=== PATIENT | male | born 1940 | race Caucasian/White ===

== ENCOUNTER → 2018-03-29 09:48 | Outpatient (CLI) | payer MEDICARE, SELFPAY ==
[2018-03-29 11:24] LABS: PSA,Total - Annual Screen 1.05 ng/mL (0.00-4.00)
== END ==
PROVIDERS: Family Provider Nurse Practitioner; PCP Nurse Practitioner; Visit Provider Nurse Practitioner
DX: Z12.5 Encounter for screening for malignant neoplasm of prostate (principal)
CPT/HCPCS: 36415; 84153; G0103

== ENCOUNTER → 2018-04-01 12:49 | Outpatient (CLI) | payer MEDICARE, SELFPAY ==
--- NOTE | 2018-04-01 12:49 | DT_ITS ---
This patient was seen during an EMR downtime March 31, 2018 - April 07, 2018. This patient may have a combination of paper and electronic documentation or all paper documentation. All documentation is viewable within the e-chart portion of [email or web address] for each patient visit.
[2018-04-07 17:04] LABS: ALB/GLOB Ratio 1.1 RATIO (0.9-2.4); AST(SGOT) 25 U/L (15-37); Alanine Aminotransfer ALT/SGPT 33 U/L (16-61); Albumin, Serum 3.6 g/dL (3.2-5.0); Alkaline Phosphatase 115 U/L (45-117); Anion Gap 3 (5-15); BUN 21 mg/dL (7-18); Calcium,Total 8.4 mg/dL (8.5-10.1); Chloride 110 mmol/L (98-107); EST Glomerular Filtration Rate 76 mL/min (>60); Est Glom Filt Rate - Afr Amer 92 mL/min (>60); Globulin 3.3 g/dL (2.2-4.2); Glucose 104 mg/dL (74-106); Potassium 4.2 mmol/L (3.5-5.1); Protein, Total 6.9 g/dL (6.4-8.2); Sodium Level 142 mmol/L (136-145)
[2018-04-07 17:05] LABS: Absolute Lymphocyte Count 1.14 X10^3/ul (0.83-4.51); Absolute Neutrophil Count 3.6 X10^3/uL (2.0-7.7); Basophil% 0.7 % (0-1); Eosinophils% 1.5 % (0-5); Hematocrit 41.2 % (40-54); Hemoglobin 13.6 g/dl (13.0-16.5); Lymphocyte # 1.14 X10^3/ul (4.0); Mean Corpuscular Hgb 32.8 pg (27.0-32.0); Mean Corpuscular Volume 99.3 fL (80-94); Mean Platelet Vol. 8.6 fl (6.2-12.0); Monocyte% 9.9 % (0-10); Neutrophil # 3.58 X10^3/uL (2.7-7.7); Neutrophil % 65.8 % (47-70); POSITIVE COUNT NO; POSITIVE DIFFERENTIAL NO; POSITIVE MORPHOLOGY NO; Platelet Count 192 K/mm3 (150-450); RBC Distribution Width CV 12.7 % (11.6-14.6); RBC Distribution Width SD 45.2 fl (35.1-43.9); Red Blood Count 4.15 M/mm3 (4.6-6.2); White Blood Count 5.4 K/mm3 (4.4-11.0)
== END ==
PROVIDERS: Family Provider Nurse Practitioner; PCP Nurse Practitioner; Visit Provider Nurse Practitioner
DX: R41.3 Other amnesia (principal); I10 Essential (primary) hypertension; D64.9 Anemia, unspecified
CPT/HCPCS: 36415; 80053; 84443; 85025

== ENCOUNTER → 2018-05-05 07:54 | Outpatient (CLI) | payer MEDICARE, SELFPAY ==
[2018-05-05 09:08] LABS: AST(SGOT) 21 U/L (15-37); Alanine Aminotransfer ALT/SGPT 30 U/L (16-61); Albumin, Serum 3.6 g/dL (3.2-5.0); Alkaline Phosphatase 136 U/L (45-117); Bilirubin, Direct 0.18 mg/dL (0.00-0.30); Cholesterol 126 mg/dL (200); Globulin 3.5 g/dL (2.2-4.2); High Density Lipoprotein 70 mg/dL; Protein, Total 7.1 g/dL (6.4-8.2); Triglycerides 53 mg/dL; Very Low Density Lipoprotein 11 mg/dL (5-40)
--- NOTE | 2018-05-08 14:17 | ECHOD_ITS ---
Reason For Study: MURMUR Procedure This was a 2D Doppler, Color Flow transthoracic echocardiogram. The exam was of adequate technical quality. Exam performed in department. Left Ventricle Normal LV size. Left ventricular systolic function is normal. The estimated ejection fraction is 60 %. No evidence for diastolic dysfunction. No regional wall motion abnormalities noted. Right Ventricle Normal RV size. Normal systolic function. Atria Normal left atrium. Normal right atrium. No doppler evidence for ASD. Mitral Valve There is mild mitral annular calcification. Normal mitral valve. Mild (1+) mitral valve insufficiency. Tricuspid Valve Normal tricuspid valve. Trivial tricuspid valve insufficiency. Right ventricular systolic pressure estimated to be 23 mmHg. Aortic Valve Trisinus/trileaflet aortic valve. Moderate diffuse aortic valve calcification. Moderate aortic stenosis. Trivial aortic valve insufficiency. Pulmonic Valve The pulmonic valve is not well visualized. Trivial pulmonic valve insufficiency. Great Vessels Normal sized aortic root. Calcified aortic root. Pericardium/Pleural No pericardial effusion. MMode/2D Measurements & Calculations LVIDd: 4.3 cm IVSd: 0.88 cm LVOT diam: 2.0 cm LVIDs: 2.6 cm LVPWd: 1.0 cm LVOT area: 3.0 cm2 FS: 38.8 % Ao root diam: 3.1 cm LAV(MOD-bp): 33.9 ml LVAd ap4: 27.9 cm2 LA dimension: 3.0 cm LAV(MOD-bp) Indexed: 20.7 ml/m2 EDV(MOD-sp4): 86.6 ml LAV(MOD-sp2): 40.3 ml EDV(sp4-el): 88.9 ml LAV(MOD-sp4): 26.9 ml LVAs ap4: 16.2 cm2 ESV(MOD-sp4): 37.1 ml ESV(sp4-el): 37.5 ml EF(MOD-sp4): 57.2 % EF(sp4-el): 57.8 % SV(MOD-sp4): 49.5 ml SV(sp4-el): 51.4 ml LA A4 area: 13.4 cm2 RA A4 area: 12.8 cm2 Time Measurements MV dec time: 0.20 sec Doppler Measurements & Calculations MV E max cl: 70.2 cm/sec Lat Peak E' Cl: 9.0 cm/sec Med Peak E' Cl: 8.5 cm/sec MV A max cl: 92.3 cm/sec E/E' lat: 7.8 E/E' med: 8.2 MV E/A: 0.76 Ao V2 max: 253.4 cm/sec AI max cl: 420.9 cm/sec LV V1 max: 82.1 cm/sec Ao max P.7 mmHg AI max P.9 mmHg LV V1 max P.7 mmHg Ao V2 mean: 181.0 cm/sec AI dec slope: 208.5 cm/sec2 LV V1 mean P.6 mmHg Ao mean P.8 mmHg AI P1/2t: 591.3 msec LV V1 mean: 60.3 cm/sec Ao V2 VTI: 57.3 cm LV V1 VTI: 20.4 cm TWILA(I,D): 1.1 cm2 TWILA(V,D): 0.97 cm2 SV(LVOT): 61.3 ml PA V2 max: 105.7 cm/sec TR max cl: 224.9 cm/sec TR max P.3 mmHg Interpretation Summary Left ventricular systolic function is normal. The estimated ejection fraction is 60 %. There is mild mitral annular calcification. Mild (1+) mitral valve insufficiency. Trivial tricuspid valve insufficiency. Moderate aortic stenosis. Trivial aortic valve insufficiency. Trivial pulmonic valve insufficiency. Calcified aortic root. Right ventricular systolic pressure estimated to be 23 mmHg. No evidence for diastolic dysfunction. Ordering Physician: Trav Sethi Referring Physician: KALEY NAYAK Performed By: Zeynep Rivera RDCS
== END ==
PROVIDERS: Family Provider Nurse Practitioner; PCP Nurse Practitioner; Visit Provider Internal Medicine Cardiovascular Disease
DX: E78.5 Hyperlipidemia, unspecified (principal); I35.0 Nonrheumatic aortic (valve) stenosis
CPT/HCPCS: 36415; 80061; 80076; 93306

== ENCOUNTER → 2019-03-27 | Outpatient (CLI) | payer MEDICARE, SELFPAY ==
[2018-04-25 11:15] VITALS: BMI 26.0
[2019-03-27 11:30] LABS: Absolute Lymphocyte Count 1.22 X10^3/ul (0.83-4.51); Absolute Neutrophil Count 2.5 X10^3/uL (2.0-7.7); Basophil# 0.02 X10^3/uL; Basophil% 0.5 % (0-1); Eosinophil# 0.07 X10^3/uL; Eosinophils% 1.7 % (0-5); Hematocrit 39.6 % (40-54); Hemoglobin 13.1 g/dl (13.0-16.5); Lymphocyte # 1.22 X10^3/ul (4.0); Lymphocyte % 29.1 % (19-41); Mean Corp Hgb Conc 33.1 g/gl (32-36); Mean Corpuscular Hgb 32.3 pg (27.0-32.0); Mean Corpuscular Volume 97.5 fL (80-94); Mean Platelet Vol. 8.5 fl (6.2-12.0); Monocyte# 0.37 X10^3/uL; Monocyte% 8.8 % (0-10); Neutrophil # 2.49 X10^3/uL (2.7-7.7); Neutrophil % 59.4 % (47-70); Platelet Count 139 K/mm3 (150-450); RBC Distribution Width CV 13.3 % (11.6-14.6); RBC Distribution Width SD 47.8 fl (35.1-43.9); Red Blood Count 4.06 M/mm3 (4.6-6.2); White Blood Count 4.2 K/mm3 (4.4-11.0)
[2019-03-27 11:34] LABS: POSITIVE COUNT NO; POSITIVE DIFFERENTIAL NO; POSITIVE MORPHOLOGY NO
[2019-03-27 12:11] LABS: ALB/GLOB Ratio 1.1 RATIO (0.9-2.4); AST(SGOT) 23 U/L (15-37); Alanine Aminotransfer ALT/SGPT 37 U/L (16-61); Albumin, Serum 3.5 g/dL (3.2-5.0); Alkaline Phosphatase 96 U/L (45-117); Anion Gap 5 (5-15); BUN 22 mg/dL (7-18); BUN/Creat Ratio 22.3 RATIO (10-20); Calcium,Total 8.6 mg/dL (8.5-10.1); Chloride 108 mmol/L (98-107); Cholesterol 157 mg/dL (200); Creatinine, Serum 0.99 mg/dL (0.70-1.30); EST Glomerular Filtration Rate 77 mL/min (>60); Est Glom Filt Rate - Afr Amer 94 mL/min (>60); Globulin 3.2 g/dL (2.2-4.2); Glucose 117 mg/dL (74-106); High Density Lipoprotein 79 mg/dL; PSA,Total - Annual Screen 0.99 ng/mL (0.00-4.00); Potassium 3.8 mmol/L (3.5-5.1); Protein, Total 6.7 g/dL (6.4-8.2); Sodium Level 141 mmol/L (136-145); Thyroid Stim Hormone (TSH) 1.56 uIU/mL (0.358-3.74); Triglycerides 73 mg/dL; Very Low Density Lipoprotein 15 mg/dL (5-40)
== END | disposition home or self-care (01) ==
LOC: LAB 11:03
PROVIDERS: Family Provider Nurse Practitioner; PCP Nurse Practitioner; Referring Provider Nurse Practitioner; Visit Provider Nurse Practitioner
DX: I10 Essential (primary) hypertension (principal); Z12.5 Encounter for screening for malignant neoplasm of prostate; E78.00 Pure hypercholesterolemia, unspecified
CPT/HCPCS: 36415; 80053; 80061; 84153; 84443; 85025; G0103

== ENCOUNTER → 2019-05-04 | Outpatient (CLI) | payer MEDICARE, SELFPAY ==
--- NOTE | 2019-05-04 07:31 | CDU_ITS ---
Reason For Study: STENOSIS Rt. Velocities/BP Lt. Velocities/BP Prox CCA 102/23 cm/sec. Prox CCA 94/26 cm/sec. Mid CCA 82/20 cm/sec. Mid CCA 95/26 cm/sec. Dist CCA 79/24 cm/sec. Dist CCA 83/24 cm/sec. Prox ICA 105/24 cm/sec. Prox ICA 72/21 cm/sec. Mid ICA 116/39 cm/sec. Mid ICA 88/30 cm/sec. Dist ICA 57/21 cm/sec. Dist ICA 68/26 cm/sec. Rt. ICA/CCA = 1.1. Lt. ICA/CCA = .9. Prox ECA 141/6 cm/sec. Prox ECA 116/12 cm/sec. Rt. Vert. 30/12 cm/sec. Lt. Vert. 57/17 cm/sec. Right Extracranial There is heterogeneous, smooth atherosclerotic plaque noted in the right common carotid artery. There is heterogeneous, irregular atherosclerotic plaque noted in the right internal carotid artery. There is heterogeneous, irregular atherosclerotic plaque noted in the right external carotid artery. Antegrade flow is noted in the right vertebral artery. There is heterogeneous, irregular atherosclerotic plaque noted in the right bulb. Left Extracranial There is heterogeneous, irregular atherosclerotic plaque noted in the left common carotid artery. There is heterogeneous, irregular atherosclerotic plaque noted in the left internal carotid artery. There is heterogeneous, irregular atherosclerotic plaque noted in the left external carotid artery. Antegrade flow is noted in the left vertebral artery. Procedure Carotid Duplex [id number]. Exam performed in department. Interpretation Summary Mild (<50%) stenosis right extracranial internal carotid. Mild (<50%) stenosis left extracranial internal carotid. Flow within the vertebral arteries is antegrade bilaterally. Ordering Physician: Fiona Jung Referring Physician: Fiona Jung Performed By: Stacey Vizcarra, RDCS, RVT
== END | disposition home or self-care (01) ==
PROVIDERS: Family Provider Internal Medicine; PCP Internal Medicine; Referring Provider Internal Medicine; Visit Provider Internal Medicine
DX: I65.23 Occlusion and stenosis of bilateral carotid arteries (principal)
CPT/HCPCS: 93880

== ENCOUNTER → 2019-05-29 | Outpatient (CLI) | payer MEDICARE, SELFPAY ==
--- NOTE | 2019-05-29 15:23 | MRI_ITS ---
STUDY: MRI BRAIN WITH AND WITHOUT CONTRAST REASON FOR EXAM: Male, 79 years old. Confusion for one year TECHNIQUE: Standardized multiplanar fat and water weighted pulse sequences were obtained. 12 IV Dotarem was administered for the contrast portion of the examination. COMPARISON: CT head 06/19/2016. FINDINGS: The diffusion-weighted sequence is normal. The multifocal less than 1 cm foci of increased T2 signal within the periventricular white matter and basal ganglia.. There are no enhancing lesions. Normal flow voids within the major intracranial circulation suggesting patency by spin echo criteria. Normal venous enhancement. There is no enhancing intra-axial or extra-axial abnormality. There is 1.6 cm x 1.4 cm cystic lesion likely within the left maxilla incompletely included on the field of view.. There is edema within the turbinates.. Normal sella turcica, pituitary gland, infundibular stalk, optic chiasm and hypothalamus. Normal tectal plate and pineal gland. Normal midbrain, dustin and medulla. Normal cerebellum. Normal basal cisterns. Normal bilateral temporal bones. Normal bilateral internal auditory canals. No demonstrated orbital abnormality, within the constraints of a routine brain study. Normal visualized paranasal sinuses. Normal calvarium and skull base. Normal visualized soft tissue structures. The multilevel degenerative changes of the cervical spine. MRI/Brain W/WO Contrast IMPRESSION: No MRI evidence for acute infarct Multifocal old small vessel deep white matter ischemic changes, minimal old ischemic changes within the basal ganglia, no enhancing lesions Indeterminate 1.6 x 1.4 cm cystic lesion likely within the left maxilla incompletely included on the [id number]. CT facial bones is recommended to further evaluate this is not included on the [id number] prior CT head Mild inflammatory changes within the paranasal sinuses with edema of the turbinates Multilevel spondylosis of the cervical spine Electronically Signed: Paul Hendricks, at 17:13 EDT Tel , Service support ,
== END | disposition home or self-care (01) ==
LOC: MRI 15:16
PROVIDERS: Family Provider Internal Medicine; PCP Internal Medicine; Referring Provider Internal Medicine; Visit Provider Internal Medicine
DX: R41.0 Disorientation, unspecified (principal)
CPT/HCPCS: 70553; A9575

== ENCOUNTER → 2019-06-18 | Outpatient (CLI) | payer MEDICARE, SELFPAY ==
[2019-06-15 14:24] VITALS: BMI 23.6
--- NOTE | 2019-06-18 15:41 | CT_ITS ---
STUDY: CT FACIAL BONES WITHOUT CONTRAST REASON FOR EXAM: Male, 79 years old. Cyst in left maxilla RADIATION DOSAGE (If Supplied By Facility): CTDIvol = ( 33.45 ) mGy, DLP = ( 620.79 ) mGycm TECHNIQUE: The patient was scanned in a multi detector CT scanner. Sagittal and coronal images were reconstructed. Individualized dose optimization techniques were used for this CT. COMPARISON: Recent MRI of 05/29/2019. FINDINGS: A 2.1 x 2.1 x 1.7 cm multilobulated cystic structure with thin wall is visualized along the left anterior maxilla, with attenuation of 20.4 Hounsfield unit. This may represent a possible dentigerous cyst, among other etiologies. There are also coexisting exostosis along the bilateral maxilla and also mandible, more on the left side. Normal soft tissue structures. Normal orbital mcclendon and orbital contents. Normal nasal bones and anterior nasal spine. Normal facial bones. There is no demonstrated fracture. Normal visualized paranasal sinuses. 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 There are also coexisting exostosis along the bilateral maxilla and also mandible, more on the left side. Electronically Signed: Flash Carcamo MD at 15:56 EDT Tel [phone], Service support ,
== END | disposition home or self-care (01) ==
LOC: CT 15:38
PROVIDERS: Family Provider Internal Medicine; PCP Internal Medicine; Referring Provider Internal Medicine; Visit Provider Internal Medicine
DX: R90.89 Other abnormal findings on diagnostic imaging of central nervous system (principal)
CPT/HCPCS: 70486

== ENCOUNTER → 2020-04-20 07:50 | Outpatient (CLI) | payer MEDICARE, SELFPAY ==
[2020-03-30 15:58] VITALS: BMI 23.3
--- NOTE | 2020-04-20 07:52 | ECHOD_ITS ---
Reason For Study: Murmur Procedure This was a 2D Doppler, Color Flow transthoracic echocardiogram. The exam was of adequate technical quality. Exam performed in department. Left Ventricle Normal LV size. Left ventricular systolic function is normal. The estimated ejection fraction is 65 %. No evidence for diastolic dysfunction. No regional wall motion abnormalities noted. Right Ventricle Normal RV size. Normal systolic function. Atria Normal left atrium. Normal right atrium. No doppler evidence for ASD. Mitral Valve There is mild mitral annular calcification. Normal mitral valve. Mild (1+) mitral valve insufficiency. Tricuspid Valve Normal tricuspid valve. Trivial tricuspid valve insufficiency. Aortic Valve Trisinus/trileaflet aortic valve. Moderate diffuse aortic valve calcification. Mild to moderate aortic stenosis. Mild (1+) aortic valve insufficiency. Pulmonic Valve The pulmonic valve is not well visualized. Mild (1+) pulmonic valve insufficiency. Great Vessels Normal sized aortic root. Calcified aortic root. Pericardium/Pleural No pericardial effusion. MMode/2D Measurements & Calculations LVIDd: 3.7 cm IVSd: 1.00 cm LVOT diam: 2.0 cm LVIDs: 2.0 cm LVPWd: 0.88 cm LVOT area: 3.1 cm2 FS: 46.5 % Ao root diam: 2.9 cm LAV(MOD-bp): 40.3 ml LVAd ap4: 23.6 cm2 LAV(MOD-bp) Indexed: 24.7 ml/m2 EDV(MOD-sp4): 60.8 ml LAV(MOD-sp2): 34.6 ml EDV(sp4-el): 61.0 ml LAV(MOD-sp4): 36.1 ml LVAs ap4: 13.3 cm2 ESV(MOD-sp4): 25.6 ml ESV(sp4-el): 24.1 ml EF(MOD-sp4): 57.9 % EF(sp4-el): 60.5 % SV(MOD-sp4): 35.2 ml SV(sp4-el): 36.9 ml LA A4 area: 15.4 cm2 LA dimension(2D): 2.8 cm RA A4 area: 12.3 cm2 Doppler Measurements & Calculations MV E max cl: 72.1 cm/sec Lat Peak E' Cl: 8.5 cm/sec Med Peak E' Cl: 6.3 cm/sec MV A max cl: 84.8 cm/sec E/E' lat: 8.4 E/E' med: 11.4 MV E/A: 0.85 Ao V2 max: 258.8 cm/sec AI max cl: 363.5 cm/sec LV V1 max: 115.4 cm/sec Ao max P.8 mmHg AI max P.9 mmHg LV V1 max P.4 mmHg Ao V2 mean: 170.2 cm/sec LV V1 mean P.8 mmHg Ao mean P.1 mmHg AI dec slope: 184.6 cm/sec2 LV V1 mean: 77.1 cm/sec Ao V2 VTI: 57.1 cm AI P1/2t: 576.6 msec LV V1 VTI: 24.6 cm TWILA(I,D): 1.3 cm2 TWILA(V,D): 1.4 cm2 SV(LVOT): 76.5 ml PA V2 max: 111.5 cm/sec Interpretation Summary Left ventricular systolic function is normal. The estimated ejection fraction is 65 %. There is mild mitral annular calcification. Mild (1+) mitral valve insufficiency. Trivial tricuspid valve insufficiency. Mild to moderate aortic stenosis. Mild (1+) aortic valve insufficiency. Mild (1+) pulmonic valve insufficiency. Calcified aortic root. No evidence for diastolic dysfunction. Ordering Physician: Trav Sethi Referring Physician: Fiona Jung D.O. Performed By: Irma Santacruz RDCS
[2020-04-20 09:06] LABS: Bacteria 0 SEEN /hpf (None Seen); Red Blood Cells-Urine 0 SEEN /hpf (0-5); Squamous Epithelial Cells - UA 0 SEEN /hpf (0-5)
[2020-04-20 09:44] LABS: Color, Urine Yellow (Yellow); Glucose, Dipstick Normal (Normal); Ketone-Dipstick 5 mg/dl (Negative); Leukocyte Esterase-Dipstick Negative /ul (Negative); Nitrite-Dipstick Negative (Negative); Occult Blood-Urine Negative /ul (Negative); Protein-Dipstick Negative (Negative); Specific Gravity, Urine 1.025 (1.002-1.030); Urine Bilirubin Dipstick Negative (Negative); Urine Clarity Clear (Clear); Urine Urobilinogen Normal (Normal)
[2020-04-20 09:49] LABS: Absolute Lymphocyte Count 1.15 X10^3/uL (0.83-4.51); Absolute Neutrophil Count 2.4 X10^3/uL (2.0-7.7); Basophil# 0.03 X10^3/uL; Basophil% 0.7 % (0-1); Eosinophils% 2.4 % (0-5); Hematocrit 41.3 % (40-54); Hemoglobin 13.4 g/dL (13.0-16.5); Lymphocyte # 1.15 X10^3/ul (4.0); Lymphocyte % 27.3 % (19-41); Mean Corp Hgb Conc 32.4 g/dL (32-36); Mean Corpuscular Hgb 32.9 pg (27.0-32.0); Mean Corpuscular Volume 101.5 fL (80-94); Mean Platelet Vol. 8.9 fl (6.2-12.0); Monocyte# 0.52 X10^3/uL; Monocyte% 12.3 % (0-10); NRBC Flagged by Analyzer 0 % (0-5); Neutrophil # 2.39 X10^3/uL (2.7-7.7); Neutrophil % 56.6 % (47-70); Platelet Count 154 K/mm3 (150-450); RBC Distribution Width SD 48.4 fl (35.1-43.9); Red Blood Count 4.07 M/mm3 (4.6-6.2); White Blood Count 4.2 K/mm3 (4.4-11.0)
[2020-04-20 09:56] LABS: Mucous, Urine 2+ /hpf (<or=2+)
[2020-04-20 09:57] LABS: White Blood Cells 0 SEEN /hpf (0-5)
[2020-04-20 10:05] LABS: Microalbumin,Random Urine 36.5 mg/L (NO RANGE EST.); Microalbumin:Creatinine Ratio 21.3 mg/g CRE (<30 mg/g CRE)
[2020-04-20 10:37] LABS: ALB/GLOB Ratio 1.1 RATIO (0.9-2.4); AST(SGOT) 22 U/L (15-37); Alanine Aminotransfer ALT/SGPT 39 U/L (16-61); Albumin, Serum 3.7 g/dL (3.2-5.0); Alkaline Phosphatase 92 U/L (45-117); Anion Gap 5 (5-15); BUN 25 mg/dL (7-18); Calcium,Total 8.6 mg/dL (8.5-10.1); Chloride 110 mmol/L (98-107); Cholesterol 139 mg/dL (200); EST Glomerular Filtration Rate 76 mL/min (>60); Est Glom Filt Rate - Afr Amer 92 mL/min (>60); Globulin 3.3 g/dL (2.2-4.2); Glucose 110 mg/dL (74-106); High Density Lipoprotein 75 mg/dL; PSA,Total - Annual Screen 1.74 ng/mL (0.00-4.00); Sodium Level 142 mmol/L (136-145); Triglycerides 66 mg/dL; Very Low Density Lipoprotein 13 mg/dL (5-40)
== END ==
PROVIDERS: PCP Internal Medicine; Referring Provider Internal Medicine Cardiovascular Disease; Visit Provider Internal Medicine Cardiovascular Disease
DX: E78.5 Hyperlipidemia, unspecified (principal); D69.6 Thrombocytopenia, unspecified; I10 Essential (primary) hypertension; E11.9 Type 2 diabetes mellitus without complications; Z12.5 Encounter for screening for malignant neoplasm of prostate; Z95.5 Presence of coronary angioplasty implant and graft; I25.10 Atherosclerotic heart disease of native coronary artery without angina pectoris; I49.3 Ventricular premature depolarization; I35.0 Nonrheumatic aortic (valve) stenosis
CPT/HCPCS: 36415; 80053; 80061; 81001; 82043; 82570; 83036; 84153; 85025; 93306; G0103

== ENCOUNTER → 2020-05-12 07:53 | Outpatient (CLI) | payer MEDICARE, SELFPAY ==
[2020-03-30 15:58] VITALS: BMI 23.3
--- NOTE | 2020-05-12 08:00 | CDU_ITS ---
Reason For Study: carotid stenosis Rt. Velocities/BP Lt. Velocities/BP Prox CCA 120.4/21.3 cm/sec. Prox CCA 116.1/19.4 cm/sec. Mid CCA 117.8/25.2 cm/sec. Mid CCA 107.6/19.2 cm/sec. Dist CCA 102.1/20.0 cm/sec. Dist CCA 90.5/15.5 cm/sec. Prox ICA 168.2/23.4 cm/sec. Prox ICA 42.5/8.4 cm/sec. Mid ICA 108.9/30.4 cm/sec. Mid ICA 77.6/22.7 cm/sec. Dist ICA 84.3/22.9 cm/sec. Dist ICA 85.3/27.1 cm/sec. Rt. ICA/CCA = 1.4. Lt. ICA/CCA = .8. Prox ECA 184.8/8.6 cm/sec. Prox ECA 144.1/8.0 cm/sec. Rt. Vert. 38.1/7.5 cm/sec. Lt. Vert. 75.4/20.5 cm/sec. Right Extracranial There is homogeneous, smooth atherosclerotic plaque noted in the right common carotid artery. There is heterogeneous, irregular atherosclerotic plaque noted in the right internal carotid artery. There is heterogeneous, irregular atherosclerotic plaque noted in the right external carotid artery. Antegrade flow is noted in the right vertebral artery. There is heterogeneous, irregular atherosclerotic plaque noted in the right bulb. Left Extracranial There is heterogeneous, irregular atherosclerotic plaque noted in the left common carotid artery. There is heterogeneous, irregular atherosclerotic plaque noted in the left internal carotid artery. There is heterogeneous, irregular atherosclerotic plaque noted in the left external carotid artery. Antegrade flow is noted in the left vertebral artery. Interpretation Summary Moderate (50-69%) stenosis right extracranial internal carotid. Mild (<50%) stenosis left extracranial internal carotid. Flow within the vertebral arteries is antegrade bilaterally. Heterogeneous, irregular atherosclerotic plaque is noted in the right carotid bulb, which does not appear to be hemodynamically significant. Ordering Physician: Fiona Jung Performed By: Octavio Aj RVT
== END ==
PROVIDERS: PCP Internal Medicine; Referring Provider Internal Medicine; Visit Provider Internal Medicine
DX: I65.23 Occlusion and stenosis of bilateral carotid arteries (principal)
CPT/HCPCS: 93880

== ENCOUNTER 2020-07-11 09:51 | Emergency (ER) | payer MEDICARE, SELFPAY ==
[2020-03-30 15:58] VITALS: BMI 23.3
[2020-07-11] VITALS (8 sets, daily range): BP systolic 107–173; BP diastolic 65–96; PULSE 56–69; RESP 13–18; TEMP 36.2–37; O2SAT 17–100; BMI 21.4
--- NOTE | 2020-07-11 10:01 | EKG12_ITS ---
Test Reason : STROKE Blood Pressure : / mmHG Vent. Rate : 067 BPM Atrial Rate : 069 BPM P-R Int : 000 ms QRS Dur : 066 ms QT Int : 392 ms P-R-T Axes : 000 058 063 degrees QTc Int : 414 ms Somatic/Motion Artifact Sinus Vs Ectopic Atrial Rhythm Abnormal ECG Confirmed by CHERIE OAKES, ANIKA ([id number]), senior technical editor JOSÉ LUIS JOSE ([id number]) on 07/13/2020 11:02:09 AM Referred By: BB Confirmed By:ANIKA CRESPO MD
--- NOTE | 2020-07-11 10:01 | CT_ITS ---
STUDY: CT BRAIN WITHOUT CONTRAST REASON FOR EXAM: Male, 80 years old. STROKE, HEADACHE RADIATION DOSAGE (If Supplied By Facility): CTDIvol = ( 44.99 ) mGy, DLP = ( 779.24 ) mGycm TECHNIQUE: Transaxial CT imaging of the brain was performed without administration of intravenous contrast material. Individualized dose optimization techniques were used for this CT. COMPARISON: Comparison is made with prior study dated 06/19/2016. FINDINGS: Normal soft tissue structures. Normal calvarium. There is a 3.9 cm x 2.2 cm x 4.7 cm intracerebral hematoma involving the posterior aspect of the right temporal lobe with extension of the right posteroparietal occipital lobes. There is evidence of surrounding edema a maNormal basal ganglia and thalami.e Normal brainstem.alNormal cerebellum. luiza i. ormaNormal visualized paranasal sinuses. Normal visualized paranasal sinuses. __Intracerebral hematoma involving the posterior aspect of the right temporal lobe with extension of the right posterior parietal occipital lobes. Surrounding posterior parietal occipital lobes. Surrounding edema. N.B. : The above information has been verbally conveyed by Isacc Pena to Trav Mishra MD, on 07/11/2020 10:27:01 (ET). Electronically Signed: Isacc Pena, at 10:28 EDT , Service support , CT/Brain/Head without Contrast
--- NOTE | 2020-07-11 10:03 | ED.VIS.STROK ---
History of Present Illness Chief Complaint: Headache Informant: Patient Onset: Today Narrative: Patient arrives via EMS, stroke team was called as soon as I saw the patient, I was not called prior to patient's arrival. Patient had onset of symptoms 1 hour prior to arrival, he describes dizziness, he has luisa-inattention and visual cut as well as some ataxia and he staggers on his level of consciousness, sometimes he is quite inattentive and then he becomes more attentive. I got the history and review of systems during 1 of the levels where he was attentive, he tells me a relatively reasonable story, he feels dizzy and cannot concentrate to his left. He has a slight headache. He has no nausea or vomiting he denies any chest pain or shortness of breath. Past Medical History - Allergies and Home Meds Allergies/Adverse Reactions: Allergies atorvastatin Adverse Reaction (Intermediate, Verified 03/30/20 16:00) Unknown Patient can take lipitor but not generic atorvastatin Primary Care Physician: Fiona Jung DO [Primary Care Provider] - Past Medical History: - - Hypertension, hypercholesterolemia Review of Systems General: Denies: Fever Cardiovascular: Denies: Chest pain, Palpitations Respiratory: Denies: Dyspnea, Cough Gastrointestinal: Denies: Abdominal pain, Nausea Musculoskeletal: Denies: Myalgias, Arthralgias Neurological: Denies: Headache, Weakness Psych: Denies: Depression, Anxiety Endocrine: Denies: Polyuria Hematologic: Denies: Easy bruising, Easy bleeding STROKE - NIHSS Initial 1a Level of Consciousness: 1 1b LOC Questions (Score 2 if aphasic/stupor): 0 1c LOC Commands (Only score 1st attempt): 0 2 Best Gaze (If aphasic, use reflexive mvmts.): 2 3 Visual: 2 4 Facial Palsy: 0 5 Motor Arm Right (UN = amputation/fusion): 0 5 Motor Arm Left: 0 6 Motor Leg Right: 0 6 Motor Leg Left: 0 7 Limb ataxia (Only + if out of proportion): 1 8 Sensory (Aphasia/stupor=0 or 1, coma=2): 0 9 Best Language: 0 10 Dysarthria (mute, coma=2, intubated=UN): 0 11 Extinction and Inattention (only scored if +): 1 Total Score: 7 General: Well developed Head: Normocephalic ENT: Moist mucous membranes Neck: Supple Cardiovascular: Regular rate, Regular rhythm Respiratory: No distress, CTA bilaterally Abdomen: Soft, Nontender Extremities: Nontender, No edema Skin: Normal color Neurological: Alert, Oriented x3 Psychological: Normal affect Diagnostic/Tx/Re-eval - Rhythm Strip Rhythm Strip: Sinus Rhythm Rate: 67 Ectopy: None - EKG Initial EKG Interpretation: - - Sinus rhythm with a rate of 67, read as junctional rhythm but I believe I see P waves on the EKG. Normal QTc interval. No ischemic changes. - Medical Decision Making Stroke Team Activated: Yes Reviewed Inclusion/Exclusion criteria: No Was Patient considered for Endovascular Intervention?: No IV Alteplase (t-PA) Administered: No - ICH No contraindications for IV Alteplase (t-PA) administration.: Yes Alteplase (t-PA) risks, benefits, alternative discussed: No Not given: Patient refusal: No - ICH Patient is found to have a right posterior temporal bleed, this is likely a hypertensive bleed. Patient is only on aspirin. DDAVP ordered. Keppra was ordered. I talked to the transfer line at [facility] patient was accepted. Blood pressure is now significantly improved. Critical care time (excluding procedures): 30-74 minutes ED Disposition - Plan for ED Patient: Disposition: [facility] Diagnosis: Intraparenchymal hemorrhage of brain Referrals: Fiona Jung DO [Primary Care Provider] -
--- NOTE | 2020-07-11 10:15 | ED.RN ---
osu stroke line not called due to patient in CT scan seeing patient is a brain bleed.
[2020-07-11] MEDS: Labetalol (Prefilled) 20 MG/4 ML IV (10:19)
--- NOTE | 2020-07-11 10:20 | CM.ED ---
SOCIAL WORK Responded to Stroke Alert. No family present at this time. This worker to remain available for needs. Rylie Trotter, BONUS CLERK, WAREHOUSE ASSISTANT
[2020-07-11 10:23] LABS: Absolute Lymphocyte Count 1.06 X10^3/uL (0.83-4.51); Absolute Neutrophil Count 2.7 X10^3/uL (2.0-7.7); Basophil# 0.02 X10^3/uL; Basophil% 0.5 % (0-1); Eosinophil# 0.07 X10^3/uL; Eosinophils% 1.6 % (0-5); Hematocrit 41.8 % (40-54); Hemoglobin 13.7 g/dL (13.0-16.5); Lymphocyte # 1.06 X10^3/ul (4.0); Lymphocyte % 24.4 % (19-41); Mean Corp Hgb Conc 32.8 g/dL (32-36); Mean Corpuscular Hgb 32.9 pg (27.0-32.0); Mean Corpuscular Volume 100.5 fL (80-94); Mean Platelet Vol. 8.6 fl (6.2-12.0); Monocyte% 11.5 % (0-10); NRBC Flagged by Analyzer 0 % (0-5); Neutrophil # 2.67 X10^3/uL (2.7-7.7); Neutrophil % 61.5 % (47-70); Platelet Count 144 K/mm3 (150-450); Red Blood Count 4.16 M/mm3 (4.6-6.2); White Blood Count 4.3 K/mm3 (4.4-11.0)
[2020-07-11] MEDS: levETIRAcetam IV 1,000 MG/100 ML BAG 400 MG IV (10:28)
[2020-07-11] MEDS: Labetalol 100 MG/20 ML Vial 20 MG IV (10:35)
[2020-07-11 10:42] LABS: International Normalized Ratio 1.1; Prothrombin Time (Protime)PT. 13.2 SECONDS (11.7-14.9)
[2020-07-11 10:43] LABS: Partial Thromboplast Time 30.7 Seconds (24.1-36.2)
[2020-07-11 10:44] LABS: Anion Gap 4 (5-15); BUN 27 mg/dL (7-18); BUN/Creat Ratio 25.5 RATIO (10-20); Calcium,Total 9.1 mg/dL (8.5-10.1); Chloride 111 mmol/L (98-107); Creatinine, Serum 1.06 mg/dL (0.70-1.30); EST Glomerular Filtration Rate 71 mL/min (>60); Est Glom Filt Rate - Afr Amer 86 mL/min (>60); Estimated Creatinine Clearance 48.56 ml/min; Glucose 114 mg/dL (74-106); Potassium 3.8 mmol/L (3.5-5.1); Sodium Level 143 mmol/L (136-145)
--- NOTE | 2020-07-11 10:52 | ED.RN ---
called and given update at this time of transfer status
--- NOTE | 2020-07-11 10:53 | CM.ED ---
SOCIAL WORK Patient to be transferred to [facility]. Nurse, Mario on phone with patient's at this time. Rylie Trotter, SHOE SHINER, DENTAL CHAIR ASSEMBLER
--- NOTE | 2020-07-11 10:55 | ED.RN ---
[facility] transport team at the bedside
[2020-07-11] MEDS: Desmopressin Acetate 4 MCG/ML Ampul IV (11:03)
--- NOTE | 2020-07-11 11:19 | ED.RN ---
called can updated on patient condition
[2020-07-13 07:15] LABS: Bedside Glucose 95 mg/dL (70-110)
== END 2020-07-11 11:05 | disposition short-term general hospital (02) ==
PROVIDERS: Emergency Provider Emergency Medicine; PCP Internal Medicine
DX: I61.8 Other nontraumatic intracerebral hemorrhage (principal); H53.8 Other visual disturbances; R29.707 NIHSS score 7; I10 Essential (primary) hypertension; E78.00 Pure hypercholesterolemia, unspecified; Z79.82 Long term (current) use of aspirin; Z79.899 Other long term (current) drug therapy
CPT/HCPCS: 51702; 70450; 80048; 82962; 84484; 85025; 85610; 85730; 93005; 96365; 96374; 99285; J7030; J7050; A4216; J2597

== ENCOUNTER → 2020-09-20 05:00 | Outpatient (REF) | payer MEDICARE, SELFPAY ==
[2020-07-11 10:12] VITALS: BMI 21.4
[2020-09-20 06:14] LABS: Hematocrit 37.1 % (40-54); Hemoglobin 12.3 g/dL (13.0-16.5); Mean Corp Hgb Conc 33.2 g/dL (32-36); Mean Corpuscular Hgb 32.9 pg (27.0-32.0); Mean Corpuscular Volume 99.2 fL (80-94); Mean Platelet Vol. 8.9 fl (6.2-12.0); Platelet Count 167 K/mm3 (150-450); RBC Distribution Width CV 13.3 % (11.6-14.6); RBC Distribution Width SD 47.8 fl (35.1-43.9); Red Blood Count 3.74 M/mm3 (4.6-6.2); White Blood Count 5.2 K/mm3 (4.4-11.0)
[2020-09-20 06:40] LABS: ALB/GLOB Ratio 1.2 RATIO (0.9-2.4); AST(SGOT) 17 U/L (15-37); Alanine Aminotransfer ALT/SGPT 22 U/L (16-61); Albumin, Serum 3.4 g/dL (3.2-5.0); Alkaline Phosphatase 97 U/L (45-117); Anion Gap 5 (5-15); BUN 19 mg/dL (7-18); BUN/Creat Ratio 21.1 RATIO (10-20); Calcium,Total 8.7 mg/dL (8.5-10.1); Chloride 108 mmol/L (98-107); Cholesterol 138 mg/dL (200); EST Glomerular Filtration Rate 86 mL/min (>60); Est Glom Filt Rate - Afr Amer 104 mL/min (>60); Globulin 2.9 g/dL (2.2-4.2); Glucose 100 mg/dL (74-106); High Density Lipoprotein 74 mg/dL; Potassium 3.7 mmol/L (3.5-5.1); Protein, Total 6.3 g/dL (6.4-8.2); Sodium Level 142 mmol/L (136-145); Triglycerides 78 mg/dL; Very Low Density Lipoprotein 16 mg/dL (5-40)
[2020-09-20 07:45] LABS: Hemoglobin A1c 6.2 % (3.8-5.6)
== END ==
PROVIDERS: PCP Internal Medicine; Referring Provider Internal Medicine; Visit Provider Internal Medicine
DX: I10 Essential (primary) hypertension (principal); Z79.899 Other long term (current) drug therapy
CPT/HCPCS: 36415; 80053; 80061; 83036; 85027

== ENCOUNTER → 2020-10-12 00:36 | Outpatient (REF) | payer MEDICARE, SELFPAY ==
[2020-07-11 10:12] VITALS: BMI 21.4
[2020-10-12 08:50] LABS: Color, Urine Yellow (Yellow); Glucose, Dipstick Normal (Normal); Ketone-Dipstick Negative (Negative); Leukocyte Esterase-Dipstick 25 /ul (Negative); Nitrite-Dipstick Negative (Negative); Occult Blood-Urine Negative /ul (Negative); Protein-Dipstick Negative (Negative); Specific Gravity, Urine 1.025 (1.002-1.030); Urine Bilirubin Dipstick Negative (Negative); Urine Clarity Sl. Cloudy (Clear); Urine Urobilinogen Normal (Normal)
== END ==
PROVIDERS: PCP Internal Medicine; Visit Provider Internal Medicine
DX: R44.3 Hallucinations, unspecified (principal); Z79.899 Other long term (current) drug therapy
CPT/HCPCS: 81002; 87086; 87088

== ENCOUNTER → 2020-10-14 16:45 | Outpatient (REF) | payer MEDICARE, SELFPAY ==
[2020-07-11 10:12] VITALS: BMI 21.4
[2020-10-14 17:32] LABS: Hemoglobin 13.1 g/dL (13.0-16.5); Mean Corp Hgb Conc 32.8 g/dL (32-36); Mean Corpuscular Hgb 32.7 pg (27.0-32.0); Mean Corpuscular Volume 99.8 fL (80-94); Mean Platelet Vol. 8.8 fl (6.2-12.0); Platelet Count 190 K/mm3 (150-450); RBC Distribution Width CV 13.4 % (11.6-14.6); RBC Distribution Width SD 49.1 fl (35.1-43.9); Red Blood Count 4.01 M/mm3 (4.6-6.2); White Blood Count 4.9 K/mm3 (4.4-11.0)
[2020-10-14 18:12] LABS: ALB/GLOB Ratio 1.1 RATIO (0.9-2.4); AST(SGOT) 14 U/L (15-37); Alanine Aminotransfer ALT/SGPT 25 U/L (16-61); Albumin, Serum 3.5 g/dL (3.2-5.0); Alkaline Phosphatase 135 U/L (45-117); Anion Gap 5 (5-15); BUN 25 mg/dL (7-18); BUN/Creat Ratio 26.8 RATIO (10-20); Calcium,Total 8.9 mg/dL (8.5-10.1); Chloride 109 mmol/L (98-107); Creatinine, Serum 0.93 mg/dL (0.70-1.30); EST Glomerular Filtration Rate 82 mL/min (>60); Est Glom Filt Rate - Afr Amer 99 mL/min (>60); Globulin 3.3 g/dL (2.2-4.2); Glucose 120 mg/dL (74-106); Potassium 3.7 mmol/L (3.5-5.1); Protein, Total 6.8 g/dL (6.4-8.2); Sodium Level 145 mmol/L (136-145)
== END ==
PROVIDERS: PCP Internal Medicine; Visit Provider Internal Medicine
DX: R44.3 Hallucinations, unspecified (principal); R41.0 Disorientation, unspecified
CPT/HCPCS: 80053; 84443; 85027

== ENCOUNTER → 2020-10-17 16:40 | Outpatient (REF) | payer MEDICARE, SELFPAY ==
[2020-07-11 10:12] VITALS: BMI 21.4
[2020-10-17 17:19] LABS: Vitamin B12 1035 pg/mL (211-911)
== END ==
PROVIDERS: PCP Internal Medicine; Referring Provider Internal Medicine; Visit Provider Internal Medicine
DX: Z79.899 Other long term (current) drug therapy (principal); R44.3 Hallucinations, unspecified
CPT/HCPCS: 82607

== ENCOUNTER 2022-04-11 10:50 | Outpatient (CLI) | payer MEDICARE, SELFPAY ==
[2022-04-11 11:21] LABS: Mucous, Urine 0 SEEN /hpf (<or=2+)
[2022-04-11 12:22] LABS: Absolute Lymphocyte Count 2.17 X10^3/uL (0.83-4.51); Absolute Neutrophil Count 4.8 X10^3/uL (2.0-7.7); Basophil# 0.03 X10^3/uL; Basophil% 0.4 % (0-1); Eosinophil# 0.04 X10^3/uL; Eosinophils% 0.5 % (0-5); Hematocrit 39.8 % (40-54); Hemoglobin 12.9 g/dL (13.0-16.5); Lymphocyte # 2.17 X10^3/ul (0.83-4.51); Lymphocyte % 27.5 % (19-41); Mean Corp Hgb Conc 32.4 g/dL (32-36); Mean Corpuscular Hgb 32.3 pg (27.0-32.0); Mean Corpuscular Volume 99.5 fL (80-94); Mean Platelet Vol. 8.8 fl (6.2-12.0); Monocyte# 0.73 X10^3/uL; Monocyte% 9.2 % (0-10); NRBC Flagged by Analyzer 0 % (0-5); Neutrophil # 4.84 X10^3/uL (2.7-7.7); Neutrophil % 61.3 % (47-70); Platelet Count 192 K/mm3 (150-450); RBC Distribution Width CV 13.6 % (11.6-14.6); RBC Distribution Width SD 49.4 fl (35.1-43.9); White Blood Count 7.9 K/mm3 (4.4-11.0)
[2022-04-11 12:33] LABS: Color, Urine Yellow (Yellow); Glucose, Dipstick Normal (Normal); Ketone-Dipstick Negative (Negative); Leukocyte Esterase-Dipstick 25 /ul (Negative); Nitrite-Dipstick Negative (Negative); Occult Blood-Urine Negative /ul (Negative); Protein-Dipstick Negative (Negative); Specific Gravity, Urine 1.025 (1.002-1.030); Urine Bilirubin Dipstick Negative (Negative); Urine Clarity Clear (Clear); Urine Urobilinogen Normal (Normal)
[2022-04-11 13:00] LABS: Bacteria RARE /hpf (None Seen); Calcium Oxalate Crystals Ur RARE /hpf (<or=2+); Red Blood Cells-Urine 0-5 SEEN /hpf (0-5); Squamous Epithelial Cells - UA 0-5 SEEN /hpf (0-5); Vitamin D,25 Hydroxy 65.6 ng/mL; White Blood Cells 0-5 SEEN /hpf (0-5)
[2022-04-11 13:01] LABS: Hemoglobin A1c 6.5 % (3.8-5.6)
[2022-04-11 13:11] LABS: AST(SGOT) 16 U/L (15-37); Alanine Aminotransfer ALT/SGPT 41 U/L (16-61); Albumin, Serum 3.2 g/dL (3.2-5.0); Alkaline Phosphatase 122 U/L (45-117); Anion Gap 7 (5-15); BUN 25 mg/dL (7-18); BUN/Creat Ratio 25.5 RATIO (10-20); Calcium,Total 8.6 mg/dL (8.5-10.1); Chloride 105 mmol/L (98-107); Cholesterol 143 mg/dL (200); Creatinine, Serum 0.98 mg/dL (0.70-1.30); EST Glomerular Filtration Rate 78 mL/min (>60); Est Glom Filt Rate - Afr Amer 94 mL/min (>60); Globulin 3.1 g/dL (2.2-4.2); Glucose 126 mg/dL (74-106); High Density Lipoprotein 86 mg/dL; Potassium 3.7 mmol/L (3.5-5.1); Protein, Total 6.3 g/dL (6.4-8.2); Sodium Level 141 mmol/L (136-145); Triglycerides 62 mg/dL; Very Low Density Lipoprotein 12 mg/dL (5-40)
[2022-04-11 13:17] LABS: Microalbumin,Random Urine 14.6 mg/L (NO RANGE EST.); Microalbumin:Creatinine Ratio 7.6 mg/g CRE (<30 mg/g CRE)
== END 2022-04-11 23:59 | disposition home or self-care (01) ==
LOC: LAB 10:53
PROVIDERS: PCP Internal Medicine; Visit Provider Internal Medicine
DX: E11.9 Type 2 diabetes mellitus without complications (principal); E78.5 Hyperlipidemia, unspecified; M81.0 Age-related osteoporosis without current pathological fracture; I10 Essential (primary) hypertension; R82.90 Unspecified abnormal findings in urine
CPT/HCPCS: 36415; 80053; 80061; 81001; 82043; 82306; 82570; 83036; 84443; 85025; 87086; 87088

== ENCOUNTER → 2022-05-09 | Outpatient (CLI) | payer MEDICARE, SELFPAY ==
--- NOTE | 2022-05-09 10:43 | BD_ITS ---
STUDY: DUAL ENERGY X-RAY ABSORPTIOMETRY / DXA REASON FOR EXAM: Male, 82 years old. M810. Loss of height. TECHNIQUE: Bone Mineral Density (BMD) measurements of lumbar spine and bilateral hips were obtained. COMPARISON: Comparison is made with prior study dated 05/03/2015 and 04/28/2013. FINDINGS: Lumbar Spine (L1-L4): g/cm2 (1.558) / T-score (4.2) / Z-score (5.5) Findings are suggestive of normal bone density with a low fracture risk. Left Femur Total: g/cm2 (0.619) / T-score (-2.7) / Z-score (-1.5) Left Femoral Neck: g/cm2 (0.529) / T-score (-2.9) / Z-score (-1.3) Right Femur Total: g/cm2 (0.651) / T-score (-2.5) / Z-score (-1.3) Right Femoral Neck: g/cm2 (0.591) / T-score (-2.5) / Z-score (0.8) The T-Scores on the most recent prior examination were: Lumbar Spine (L1-L4): There has been worsening of bone density since the previous examination. Left Femur Total: which represents a worsening of 0.3%. Right Femur Total: which represents a worsening of 1%. BD/Dexa Bone Density Study IMPRESSION: The patient is considered osteoporotic as outlined below according to World [place] Organization (WHO) criteria with a high fracture risk. There has been worsening of bone density since the previous examination. Reference Information: The T-score is the number of standard deviations above or below the standard which is normal for young adults at their peak bone mineral density. The World Health Organization (WHO) interprets the T-scores as follows: Above -1 Normal bone density Between -1 and -2.5 Osteopenia Equal to / or below -2.5 Osteoporosis As a practical clinical guideline, osteopenia may be graded as follows: Mild -1 through -1.5 Moderate -1.6 through -2.0 Severe -2.1 through -2.4 The Z-score is the number of standard deviations above or below age-matched controls. A Z-score of less than -1.5 would be considered abnormal. References: 1. NIH Osteoporosis and Related Bone Diseases www osteo.org 2. International Society for Clinical Densitometry www iscd.org 3. National Osteoporosis Foundation www nof.org Electronically Signed: Isacc Pena MD at 12:01 EDT ,
== END | disposition home or self-care (01) ==
LOC: OPBD 10:23
PROVIDERS: PCP Internal Medicine; Referring Provider Internal Medicine; Visit Provider Internal Medicine
DX: I49.9 Cardiac arrhythmia, unspecified (principal); M81.0 Age-related osteoporosis without current pathological fracture
CPT/HCPCS: 77080; 93225; 93226

== ENCOUNTER → 2022-08-30 | Outpatient (CLI) | payer MEDICARE, SELFPAY ==
--- NOTE | 2022-08-30 12:48 | ECHOD_ITS ---
Reason For Study: Murmur Procedure This was a 2D Doppler, Color Flow transthoracic echocardiogram. The study was technically difficult. Left Ventricle Based upon the 2D echocardiographic images obtained there appears to be grossly normal left ventricular size, wall motion, and systolic function. The estimated ejection fraction is 65 %. No evidence for diastolic dysfunction. Right Ventricle Normal RV size. Normal systolic function. Atria Normal left atrium. Normal right atrium. No doppler evidence for ASD. Mitral Valve There is mild to moderate mitral annular calcification. Extension of the mitral annular calcification onto the base of the posterior mitral valve leaflet. Trivial mitral valve insufficiency. Tricuspid Valve Normal tricuspid valve. Trivial tricuspid valve insufficiency. Unable to estimate RV systolic pressure/pulmonary artery pressure due to technically difficult study. Aortic Valve The aortic valve leaflets were not well visualized, however, based upon the 2D echocardiographic images obtained there appears to be thickening, calcification, and partial restriction. Moderate aortic stenosis. Pulmonic Valve The pulmonic valve is not well visualized. Great Vessels The aortic root is not well visualized. Pericardium/Pleural No pericardial effusion. MMode/2D Measurements & Calculations LVIDd: 4.0 cm IVSd: 0.94 cm LVOT diam: 2.0 cm LVIDs: 2.6 cm LVPWd: 0.86 cm LVOT area: 3.0 cm2 RVDd: 3.2 cm FS: 36.0 % LA dimension: 3.2 cm LAV(MOD-sp4): 25.3 ml LA A4 area: 13.1 cm2 Time Measurements MV dec time: 0.19 sec Doppler Measurements & Calculations MV E max cl: 50.4 cm/sec Lat Peak E' Cl: 8.6 cm/sec Med Peak E' Cl: 6.1 cm/sec MV A max cl: 61.9 cm/sec E/E' lat: 5.8 E/E' med: 8.3 MV E/A: 0.81 MV V2 max: 75.2 cm/sec MV P1/2t max cl: 51.0 cm/sec Ao V2 max: 228.0 cm/sec MV max P.3 mmHg MV P1/2t: 104.4 msec Ao max P.8 mmHg MV V2 mean: 32.8 cm/sec MV dec slope: 143.1 cm/sec2 Ao V2 mean: 158.3 cm/sec MV mean P.53 mmHg MVA(P1/2t): 2.1 cm2 Ao mean P.6 mmHg MV V2 VTI: 24.0 cm Ao V2 VTI: 52.2 cm MVA(VTI): 1.5 cm2 TWILA(I,D): 0.71 cm2 TWILA(V,D): 0.74 cm2 LV V1 max: 55.3 cm/sec SV(LVOT): 36.8 ml PA V2 max: 66.3 cm/sec LV V1 max P.2 mmHg LV V1 mean P.62 mmHg LV V1 mean: 36.2 cm/sec LV V1 VTI: 12.2 cm ECHO/Echo Complete Interpretation Summary The study was technically difficult. Based upon the 2D echocardiographic images obtained there appears to be grossly normal left ventricular size, wall motion, and systolic function. The estimated ejection fraction is 65 %. There is mild to moderate mitral annular calcification. Extension of the mitral annular calcification onto the base of the posterior mi tral valve leaflet. Trivial mitral valve insufficiency. Trivial tricuspid valve insufficiency. The aortic valve leaflets were not well visualized, however, based upon the 2D echocardiographic images obtained there appears to be thickening, calcification, and partial rest riction. Moderate aortic stenosis. Unable to estimate RV systolic pressure/pulmonary artery pressure due to techni ralph difficult study. No evidence for diastolic dysfunction. Ordering Physician: Trav Sethi Referring Physician: Fiona Jung D.O. Performed By: Derek Castellanos RCS
== END | disposition home or self-care (01) ==
PROVIDERS: PCP Internal Medicine; Referring Provider Internal Medicine Cardiovascular Disease; Visit Provider Internal Medicine Cardiovascular Disease
DX: I35.0 Nonrheumatic aortic (valve) stenosis (principal); I25.10 Atherosclerotic heart disease of native coronary artery without angina pectoris
CPT/HCPCS: 93306

== ENCOUNTER 2022-09-18 12:41 | Outpatient (CLI) | payer MEDICARE, SELFPAY ==
--- NOTE | 2022-09-18 12:46 | CDU_ITS ---
Reason For Study: Stenosis Rt. Velocities/BP Lt. Velocities/BP Prox CCA 80.6/16.3 cm/sec. Prox CCA 81.4/13.9 cm/sec. Mid CCA 76.8/16.3 cm/sec. Mid CCA 81.4/12.6 cm/sec. Dist CCA 81.5/14.5 cm/sec. Dist CCA 75.3/12.6 cm/sec. Bulb, 200.4/29.3 cm/sec. Prox ICA 36/9.9 cm/sec. Prox ICA 182.2/18.9 cm/sec. Mid ICA 67.4/17.7 cm/sec. Mid ICA 90/17 cm/sec. Dist ICA 42.1/11.6 cm/sec. Dist ICA 84.6/18.8 cm/sec. Lt. ICA/CCA = 0.83. Rt. ICA/CCA = 2.26. Prox ECA 126.6/7.9 cm/sec. Prox ECA 157.6/6 cm/sec. Lt. Vert. 61.3/9 cm/sec. Rt. Vert. 55.6/11.4 cm/sec. Right Extracranial There is homogeneous, smooth atherosclerotic plaque noted in the right common carotid artery. There is heterogeneous, irregular atherosclerotic plaque noted in the right internal carotid artery. There is heterogeneous, irregular atherosclerotic plaque noted in the right external carotid artery. Antegrade flow is noted in the right vertebral artery. There is heterogeneous, irregular atherosclerotic plaque noted in the right bulb. Left Extracranial There is heterogeneous, irregular atherosclerotic plaque noted in the left common carotid artery. There is heterogeneous, irregular atherosclerotic plaque noted in the left internal carotid artery. There is heterogeneous, irregular atherosclerotic plaque noted in the left external carotid artery. Antegrade flow is noted in the left vertebral artery. Procedure Carotid Duplex [id number]. This is a Carotid Duplex examination using B-mode, color flow and specral Doppler. Exam performed in department. VL/Carotid Duplex Ultrasound Interpretation Summary Moderate (50-69%) stenosis right extracranial internal carotid. Mild (<50%) stenosis left extracranial internal carotid. Patent and antegrade vertebrals bilaterally. Ordering Physician: Fiona Jung Referring Physician: Fiona Jung Performed By: Nat Ham RVT
--- NOTE | 2022-09-18 12:48 | RAD_ITS ---
STUDY: X-RAY - LUMBAR SPINE REASON FOR EXAM: Male, 82 years old. PAIN TECHNIQUE: view(s) of the lumbar spine were obtained. COMPARISON: None FINDINGS: Normal lumbar lordosis. There is mild levoscoliosis of the lumbar spine. There is a normal alignment of the vertebrae. Normal vertebral bodies and endplates. There is multilevel disc space narrowing. There is extensive multilevel osteophyte formation and endplate spondylosis. The soft tissue structures are unremarkable. RAD/L/S Spine Min 4 Views IMPRESSION: Multilevel degenerative changes. Mild levoscoliosis. Electronically Signed: Viktor Petersen MD at 14:35 EST ,
--- NOTE | 2022-09-18 13:00 | RAD_ITS ---
EXAM: XR PELVIS, 1 OR 2 VIEWS CLINICAL INDICATION: PAIN TECHNIQUE: Frontal view of the pelvis. This report was created using [employer] report generation technology. COMPARISON: None. FINDINGS: BONES/JOINTS: Atrophic changes of the right side of the pelvis and proximal right thigh compared to the left side. No acute fracture or subluxation. Degenerative changes noted within the spine SOFT TISSUES: Right-sided atrophy. No soft tissue swelling or gas. RAD/Pelvis 1 or 2 Views IMPRESSION: No acute findings in the pelvis. Electronically Signed: Palmer Nance MD at 16:14 EST ,
== END 2022-09-18 23:59 | disposition home or self-care (01) ==
LOC: CVS 12:45
PROVIDERS: PCP Internal Medicine; Referring Provider Internal Medicine; Visit Provider Internal Medicine
DX: I65.23 Occlusion and stenosis of bilateral carotid arteries (principal); R10.2 Pelvic and perineal pain
CPT/HCPCS: 72110; 72170; 93880

== ENCOUNTER → 2022-10-12 | Outpatient (CLI) | payer MEDICARE, SELFPAY ==
[2022-10-12 15:14] LABS: Absolute Lymphocyte Count 1.45 X10^3/uL (0.83-4.51); Absolute Neutrophil Count 4.2 X10^3/uL (2.0-7.7); Basophil# 0.05 X10^3/uL; Basophil% 0.8 % (0-1); Eosinophil# 0.25 X10^3/uL; Eosinophils% 3.8 % (0-5); Hematocrit 40.8 % (40-54); Lymphocyte # 1.45 X10^3/ul (0.83-4.51); Lymphocyte % 21.8 % (19-41); Mean Corp Hgb Conc 31.9 g/dL (32-36); Mean Corpuscular Volume 100.5 fL (80-94); Mean Platelet Vol. 8.8 fl (6.2-12.0); Monocyte% 10.5 % (0-10); NRBC Flagged by Analyzer 0 % (0-5); Neutrophil # 4.17 X10^3/uL (2.7-7.7); Neutrophil % 62.5 % (47-70); Platelet Count 136 K/mm3 (150-450); RBC Distribution Width CV 13.2 % (11.6-14.6); RBC Distribution Width SD 48.8 fl (35.1-43.9); Red Blood Count 4.06 M/mm3 (4.6-6.2); White Blood Count 6.7 K/mm3 (4.4-11.0)
[2022-10-12 15:38] LABS: ALB/GLOB Ratio 1.2 RATIO (0.9-2.4); AST(SGOT) 18 U/L (15-37); Alanine Aminotransfer ALT/SGPT 33 U/L (16-61); Albumin, Serum 3.7 g/dL (3.2-5.0); Alkaline Phosphatase 118 U/L (45-117); Anion Gap 4 (5-15); BUN 27 mg/dL (7-18); BUN/Creat Ratio 24.3 RATIO (10-20); Chloride 113 mmol/L (98-107); Creatinine, Serum 1.11 mg/dL (0.70-1.30); EST Glomerular Filtration Rate 67 mL/min (>60); Est Glom Filt Rate - Afr Amer 81 mL/min (>60); Globulin 3.2 g/dL (2.2-4.2); Glucose 101 mg/dL (74-106); Potassium 4.2 mmol/L (3.5-5.1); Protein, Total 6.9 g/dL (6.4-8.2); Sodium Level 146 mmol/L (136-145); Thyroid Stim Hormone (TSH) 2.48 uIU/mL (0.358-3.74)
[2022-10-12 16:20] LABS: Color, Urine Yellow (Yellow); Glucose, Dipstick Normal (Normal); Ketone-Dipstick Negative (Negative); Leukocyte Esterase-Dipstick Negative /ul (Negative); Nitrite-Dipstick Negative (Negative); Occult Blood-Urine Negative /ul (Negative); Protein-Dipstick Negative (Negative); Specific Gravity, Urine 1.015 (1.002-1.030); Urine Bilirubin Dipstick Negative (Negative); Urine Clarity Clear (Clear); Urine Urobilinogen 1 mg/dl (Normal)
== END | disposition home or self-care (01) ==
LOC: LAB 14:42
PROVIDERS: PCP Internal Medicine; Visit Provider Internal Medicine
DX: R41.0 Disorientation, unspecified (principal)
CPT/HCPCS: 36415; 80053; 81002; 84443; 85025; 87086; 87088

== ENCOUNTER → 2022-11-19 | Outpatient (CLI) | payer MEDICARE, SELFPAY ==
--- NOTE | 2022-11-19 12:32 | MRI_ITS ---
EXAM: MR HEAD WITHOUT AND WITH INTRAVENOUS CONTRAST CLINICAL INDICATION: Increased confusion. TECHNIQUE: Multiplanar and multisequence MR images of the brain were obtained without and with intravenous contrast. This report was created using [employer] report [employer] technology. CONTRAST: IV 11mL CLARISCAN COMPARISON: MRI brain with and without contrast 05/29/2019. CT head without contrast 07/11/2020. 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 Following IV contrast administration, there are no abnormally enhancing lesions intra-axially and extra-axially. Ex vacuo dilatation of the posterior body, atrium and inferior horn of the right lateral ventricle. No intracranial mass or mass effect. Posterior fossa structures are unremarkable. No hydrocephalus. Basal cisterns are patent. No diffusion restriction to suspect acute or subacute ischemic infarct. SELLA: Unremarkable. Normal sella turcica, pituitary gland, infundibular stalk, optic chiasm and hypothalamus. AUDITORY SYSTEM: Unremarkable. The internal auditory canals are patent. BONES/JOINTS: Unremarkable. No discrete lytic or blastic abnormalities. SINUSES: Unremarkable as visualized. Clear. MASTOID AIR CELLS: Unremarkable as visualized. Clear. ORBITS: Unremarkable as visualized. Both globes, extraocular muscles, optic nerves and retrobulbar fat appear unremarkable. VASCULATURE: Unremarkable as visualized. Normal flow voids in the major intracranial circulation. MRI/Brain W/WO Contrast IMPRESSION: 1. No MRI evidence of acute or subacute ischemic infarct or acute intracranial abnormality. 2. No abnormal enhancing lesions intra-axially and extra-axially. 3. 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 Electronically Signed: Angelo Dangelo MD at 14:53 EST ,
[2022-11-19 13:16] LABS: CREATININE FINGERSTICK < 0.9 mg/dL (0.70-1.30); EGFR FINGERSTICK > 60.0000 mL/min (>60)
== END | disposition home or self-care (01) ==
PROVIDERS: PCP Internal Medicine; Visit Provider Internal Medicine
DX: R41.0 Disorientation, unspecified (principal)
CPT/HCPCS: 70553; A9575

== ENCOUNTER → 2023-03-01 | Outpatient (CLI) | payer MEDICARE, SELFPAY ==
[2023-03-01 14:08] LABS: Absolute Lymphocyte Count 1.04 X10^3/uL (0.83-4.51); Absolute Neutrophil Count 3.7 X10^3/uL (2.0-7.7); Basophil# 0.05 X10^3/uL; Basophil% 0.9 % (0-1); Eosinophil# 0.08 X10^3/uL; Eosinophils% 1.5 % (0-5); Hematocrit 40.6 % (40-54); Hemoglobin 12.7 g/dL (13.0-16.5); Lymphocyte # 1.04 X10^3/ul (0.83-4.51); Lymphocyte % 19.7 % (19-41); Mean Corp Hgb Conc 31.3 g/dL (32-36); Mean Corpuscular Hgb 31.5 pg (27.0-32.0); Mean Corpuscular Volume 100.7 fL (80-94); Mean Platelet Vol. 9.4 fl (6.2-12.0); Monocyte% 7.6 % (0-10); NRBC Flagged by Analyzer 0 % (0-5); Neutrophil # 3.68 X10^3/uL (2.7-7.7); Neutrophil % 69.5 % (47-70); Platelet Count 143 K/mm3 (150-450); RBC Distribution Width CV 13.9 % (11.6-14.6); RBC Distribution Width SD 51.5 fl (35.1-43.9); Red Blood Count 4.03 M/mm3 (4.6-6.2); White Blood Count 5.3 K/mm3 (4.4-11.0)
[2023-03-01 14:21] LABS: Hemoglobin A1c 6.8 % (3.8-5.6)
[2023-03-01 14:32] LABS: Vitamin B12 1643 pg/mL (211-911)
[2023-03-01 15:08] LABS: ALB/GLOB Ratio 0.9 RATIO (0.9-2.4); AST(SGOT) 21 U/L (15-37); Alanine Aminotransfer ALT/SGPT 32 U/L (16-61); Albumin, Serum 3.4 g/dL (3.2-5.0); Alkaline Phosphatase 126 U/L (45-117); Anion Gap 6 (5-15); BUN 26 mg/dL (7-18); BUN/Creat Ratio 23.4 RATIO (10-20); Calcium,Total 8.8 mg/dL (8.5-10.1); Chloride 107 mmol/L (98-107); Cholesterol 140 mg/dL (200); Creatinine, Serum 1.11 mg/dL (0.70-1.30); EST Glomerular Filtration Rate 67 mL/min (>60); Est Glom Filt Rate - Afr Amer 81 mL/min (>60); Globulin 3.6 g/dL (2.2-4.2); Glucose 172 mg/dL (74-106); High Density Lipoprotein 73 mg/dL; Potassium 4.1 mmol/L (3.5-5.1); Sodium Level 142 mmol/L (136-145); Thyroid Stim Hormone (TSH) 2.23 uIU/mL (0.358-3.74); Triglycerides 112 mg/dL; Very Low Density Lipoprotein 22 mg/dL (5-40)
== END | disposition home or self-care (01) ==
LOC: LAB 13:26
PROVIDERS: PCP Internal Medicine; Referring Provider Internal Medicine; Visit Provider Internal Medicine
DX: E11.9 Type 2 diabetes mellitus without complications (principal); F01.50 Vascular dementia, unspecified severity, without behavioral disturbance, psychotic disturbance, mood disturbance, and anxiety; D69.6 Thrombocytopenia, unspecified; E87.0 Hyperosmolality and hypernatremia; E78.00 Pure hypercholesterolemia, unspecified; R44.3 Hallucinations, unspecified
CPT/HCPCS: 36415; 80053; 80061; 82607; 82746; 83036; 84443; 85025

== ENCOUNTER → 2023-08-05 | Outpatient (CLI) | payer MEDICARE, SELFPAY ==
[2023-08-05 15:15] LABS: Hematocrit 40.5 % (40-54); Hemoglobin 12.7 g/dL (13.0-16.5); Mean Corp Hgb Conc 31.4 g/dL (32-36); Mean Corpuscular Hgb 32.1 pg (27.0-32.0); Mean Corpuscular Volume 102.3 fL (80-94); Mean Platelet Vol. 8.9 fl (6.2-12.0); Platelet Count 162 K/mm3 (150-450); RBC Distribution Width CV 13.9 % (11.6-14.6); Red Blood Count 3.96 M/mm3 (4.6-6.2); White Blood Count 8.5 K/mm3 (4.4-11.0)
[2023-08-05 15:54] LABS: ALB/GLOB Ratio 1.1 RATIO (0.9-2.4); AST(SGOT) 17 U/L (15-37); Alanine Aminotransfer ALT/SGPT 33 U/L (16-61); Albumin, Serum 3.6 g/dL (3.2-5.0); Alkaline Phosphatase 133 U/L (45-117); Anion Gap 5 (5-15); BUN 33 mg/dL (7-18); Calcium,Total 8.9 mg/dL (8.5-10.1); Chloride 109 mmol/L (98-107); Creatinine, Serum 1.18 mg/dL (0.70-1.30); EST Glomerular Filtration Rate 62 mL/min (>60); Est Glom Filt Rate - Afr Amer 75 mL/min (>60); Globulin 3.4 g/dL (2.2-4.2); Glucose 109 mg/dL (74-106); Potassium 4.4 mmol/L (3.5-5.1); Sodium Level 141 mmol/L (136-145); Thyroid Stim Hormone (TSH) 2.15 uIU/mL (0.358-3.74)
[2023-08-08 19:07] LABS: Vitamin B1, Thiamine 160.7 nmol/L (66.5-200.0)
== END | disposition home or self-care (01) ==
PROVIDERS: PCP Internal Medicine; Referring Provider Psychiatry & Neurology Neurology; Visit Provider Psychiatry & Neurology Neurology
DX: F03.90 Unspecified dementia, unspecified severity, without behavioral disturbance, psychotic disturbance, mood disturbance, and anxiety (principal)
CPT/HCPCS: 36415; 80053; 84425; 84443; 85027